=== PATIENT | female | born 1955 | race Caucasian/White ===

== ENCOUNTER 2018-12-05 08:56 | Inpatient (IN) | payer OTHER ==
[2018-12-04 14:45] VITALS: Ht 174 cm; Wt 123.6 kg
[~2018-12-05] VITALS: Ht 174 cm; Wt 123.6 kg
[2018-12-05] VITALS (32 sets, daily range): BP systolic 136–171; BP diastolic 67–86; PULSE 68–87; RESP 9–27
[2018-12-05] MEDS ORDERED: DULO30CA47 PO (10:15)
[2018-12-05] MEDS ORDERED: DULO60CA59 PO (10:15)
[2018-12-05] MEDS ORDERED: DICL75TA2 PO (10:16)
--- NOTE | 2018-12-05 10:16 | PREAC ---
Date/Time of Note Date/Time of Note DATE: 12/05/18 TIME: 10:15 Anesthesia Eval and Record Evaluation Time Pre-Procedure Interview DATE: 12/05/18 TIME: 10:15 Age 63 Sex female NPO: 8 hrs Preoperative diagnosis Left knee osteoarthritis Planned procedure Left total knee replacement Past Medical History Past Medical History: Includes Cardio: HTN GI: Morbid obesity Psych: Depression Surgery & Anesthesia Issues No known issue Meds Anticoagulation: No Beta Lindsey within 24 hr: Yes Reported Medications Tramadol Hcl* (Ultram*) 50 Mg Tablet, 50 MG PO TID PRN for PAIN, TAB 12/05/18 Gabapentin* (Gabapentin*) 300 Mg Capsule, 600 MG PO QHS, #180 CAP 12/05/18 Gabapentin* (Gabapentin*) 300 Mg Capsule, 300 MG PO QNOON, #90 CAP 12/05/18 Gabapentin* (Gabapentin*) 300 Mg Capsule, 300 MG PO QAM, #60 CAP 12/05/18 Baclofen* (Baclofen*) 10 Mg Tablet, 10 MG PO TID, TAB 12/05/18 Propranolol Hcl* (Inderal* LA) 80 Mg Cap.sa.24h, 80 MG PO DAILY, CAP 12/05/18 Diclofenac Sodium* (Diclofenac Sodium*) 75 Mg Tablet.dr, 75 MG PO BID, #60 TAB 12/05/18 Duloxetine Hcl* (Duloxetine Hcl*) 60 Mg Capsule.dr, 90 MG PO QPM, #30 CAP 12/05/18 Discontinued Reported Medications Duloxetine Hcl* (Duloxetine Hcl*) 30 Mg Capsule.dr, 30 MG PO QPM, #30 CAP 12/05/18 Current Medications Tranexamic Acid 100 ml @ 200 mls/hr INTRA-OP ONCE IV ; Start 12/05/18 at 10:30; Stop 12/05/18 at 10:59 Meds reviewed: Yes Allergies Coded Allergies: No Known Allergy (Unverified , 12/05/18) Allergies Reviewed: Yes Labs/Studies Labs Reviewed: Reviewed by anesthesiologist test: N/A Pre-procedure Exam Airway: Adequate mouth opening Mallampati: Mallampati II Teeth: Normal Lung: Normal Heart: Normal ASA Physical Status ASA physical status: 3 Emergency: None Planned Anesthetic General/MAC: ETT, LMA Planned Pain Management Parenteral pain med Pre-operative Attestations Prior to commencing anesthesia and surgery, the patient was re-evaluated, there was verification of: *The patient's identity *The results of appropriate recent lab work and preoperative vital signs *The above evaluation not changing prior to induction *Anesthetic plan, risk benefits, alternative and complications discussed with patient/family; questions answered; patient/family understands, accepts and wishes to proceed. MILLA BAILEY MD Dec 05, 2018 10:16
[2018-12-05] MEDS ORDERED: BACL10TA PO (10:17)
[2018-12-05] MEDS ORDERED: PROP80CA PO (10:17)
[2018-12-05] MEDS ORDERED: GABA300C16 PO ×3 (10:18)
[2018-12-05] MEDS ORDERED: TRAM50TA PO (10:19)
[2018-12-05] MEDS ORDERED: TRANEXAMIC ACID 1GM/100ML(PMX) 100 ML IV ONE (10:30)
[2018-12-05] MEDS ORDERED: BACITRACIN/POLYMYXIN 28.35 GM OINT TOP ONE (10:30)
[2018-12-05] MEDS ORDERED: POLYMYXIN/BACITRACIN 1L IRRIG ONE ×2 (10:30→11:04)
[2018-12-05] MEDS ORDERED: LACTATED RINGER'S 1,000 ML IV SCH (11:00)
[2018-12-05] MEDS ORDERED: CEFAZOLIN 1 GM INJ ONE (11:34)
[2018-12-05] MEDS ORDERED: ONDANSETRON 4 MG INJ ONE (11:35)
[2018-12-05] MEDS ORDERED: METOCLOPRAMIDE 10 MG INJ ONE (11:35)
[2018-12-05] MEDS ORDERED: ONDANSETRON 4 MG INJ IV STA (11:38)
--- NOTE | 2018-12-05 11:47 | HPN ---
Date/Time of Note Date/Time of Note DATE: 12/05/18 TIME: 11:47 Interval H&P Admission Note Pt. seen H&P reviewed: No system changes DIANA SWANSON MD Dec 05, 2018 11:47
[2018-12-05] MEDS ORDERED: TRANEXAMIC ACID 1GM/100ML(PMX) 200 ML ONE (11:48)
[2018-12-05] MEDS ORDERED: PROPOFOL 20 ML ONE (11:56)
[2018-12-05] MEDS ORDERED: GLYCOPYRROLATE 0.4 MG INJ ONE ×3 (11:56→13:49)
[2018-12-05] MEDS ORDERED: LIDOCAINE 2% (SDV) 5 ML INJ ONE (11:56)
[2018-12-05] MEDS ORDERED: SUCCINYLCHOLINE CHLORIDE 100 MG/5 ML SYG IV ONE (11:56)
[2018-12-05] MEDS ORDERED: ROCURONIUM 50 MG INJ ONE (11:56)
[2018-12-05] MEDS ORDERED: MEPERIDINE 100 MG INJ ONE (11:56)
[2018-12-05] MEDS ORDERED: NEOSTIGMINE 3 MG/3 ML SYRINGE ONE ×2 (11:56→13:45)
[2018-12-05] MEDS ORDERED: hydrALAzine 20 MG INJ IV PRN (12:00)
[2018-12-05] MEDS ORDERED: FENTAnyl 50 MCG/ML VIAL IV PRN ×3 (12:00)
[2018-12-05] MEDS ORDERED: MEPERIDINE 25 MG INJ IV PRN (12:00)
[2018-12-05] MEDS ORDERED: DIPHENHYDRAMINE 50 MG INJ IV PRN ×2 (12:00→14:30)
[2018-12-05] MEDS ORDERED: MIDAZOLAM 1 MG/ML 2 ML INJ IV PRN (12:00)
[2018-12-05] MEDS ORDERED: ONDANSETRON 4 MG INJ IV PRN ×2 (12:00→14:30)
[2018-12-05] MEDS ORDERED: EPHEDrine 25 MG/5 ML SYG IV PRN (12:00)
[2018-12-05] MEDS ORDERED: HYDROmorphONE 1 MG/5 ML IV SYRINGE IV PRN ×3 (12:00)
[2018-12-05] MEDS ORDERED: LABETALOL HCL 20MG INJ IV PRN (12:00)
[2018-12-05] MEDS ORDERED: METOCLOPRAMIDE 10 MG INJ IV PRN (12:00)
[2018-12-05] MEDS ORDERED: NALOXONE (0.4 MG/ML) INJ IV PRN ×3 (14:30→15:00)
[2018-12-05] MEDS ORDERED: LABETALOL HCL 20MG INJ ONE (14:30)
--- NOTE | 2018-12-05 14:46 | OPR ---
Date/Time of Note Date/Time of Note DATE: 12/05/18 TIME: 11:47 Operative Report Preoperative Diagnosis left knee arthritis Postoperative Diagnosis same Operation/Procedure Performed left total knee Surgeon see signature line Support Services Rep radha jara Anesthesia Type: general Estimated Blood Loss: 150 - 200 ml's Transfusion none Specimen bone Grafts/Implants size 6 femur, 4 tibia, ps cemented Tubes/Drains drain Complications none Pt Condition Post Procedure: stable Procedure Description left total knee DIANA SWANSON MD Dec 05, 2018 14:46
[2018-12-05] MEDS: HYDROmorphONE 0.2 MG/ML PCA IV SCH ×2 (14:54→20:40)
[2018-12-05] MEDS ORDERED: NACL 0.9% 3 ML SYG IV SCH ×2 (15:00)
[2018-12-05] MEDS ORDERED: BISACODYL 10 MG SUPP PR PRN (15:00)
[2018-12-05] MEDS ORDERED: NA PHOSPHATE/BIPHOS 133 ML ENEMA PR PRN (15:00)
[2018-12-05] MEDS ORDERED: DOCUSATE SODIUM 100 MG CAP PO ONE (15:00)
[2018-12-05] MEDS ORDERED: HYDROmorphONE 1 MG/ML SYG IV PRN (15:00)
[2018-12-05] MEDS ORDERED: SENNA/DOCUSATE NA (8.6MG/50MG) TAB PO PRN (15:00)
[2018-12-05] MEDS ORDERED: MAGNESIUM HYDROXIDE 30ML CUP PO PRN (15:00)
[2018-12-05] MEDS: CEFAZOLIN 2 GM/50 ML (PMX) 50 ML IVPB SCH ×2 (15:50→23:34)
--- NOTE | 2018-12-05 15:50 | PAC ---
Date/Time of Note Date/Time of Note DATE: 12/05/18 TIME: 15:49 Post-Anesthesia Notes Post-Anesthesia Note Last documented vital signs Vital Signs Date Temp Pulse Resp B/P (MAP) Pulse Ox O2 O2 Flow FiO2 Time Delivery Rate 12/05/18 Nasal 3.0 15:26 Cannula 12/05/18 76 12 153/76 92 15:17 (101) 12/05/18 98.7 14:30 Activity: WNL Respiratory function: WNL Cardiovascular function: WNL Mental status: Baseline Pain reasonably controlled: Yes Hydration appropriate: Yes Nausea/Vomiting absent: Yes MILLA BAILEY MD Dec 05, 2018 15:50
[2018-12-05] MEDS: ONDANSETRON 4 MG INJ IV SCH ×2 (19:20→21:00)
--- NOTE | 2018-12-05 22:03 | OPR ---
DATE OF OPERATION: 12/05/2018 SURGEON: Diana Swanson MD EVENT DESIGNER: RILEY Mock ANESTHESIA: General. PREOPERATIVE DIAGNOSIS: Left knee osteoarthritis. POSTOPERATIVE DIAGNOSIS: Left knee osteoarthritis. PROCEDURE PERFORMED: Left total knee replacement arthroplasty using Armendariz and Nephew posterior stabi lized components, size 6 femur, size 4 tibia, 9 mm liner, 23 mm patellar button Components cemented w ith antibiotic-impregnated cement. ESTIMATED BLOOD LOSS: 200 mL. TOURNIQUET TIME: 65 minutes. COMPLICATIONS: None. PROCEDURE: The patient taken to the operating room and general anesthetic given with intubation, 2 g richie of Kefzol given for prophylaxis with 1 gram of tranexamic acid given. Left leg prepped and drap ed in the usual sterile manner, exsanguinated with Esmarch bandage, tourniquet inflated to 300 mmHg. Standard anterior incision made through medial arthrotomy. Severe arthritis noted in the patellofem oral compartment as well as in the medial and lateral compartments. Large osteophytes removed. Mckenna lla prepared for the 23 mm button. Femur cut for a size 6 posterior stabilized. Tibia cut for a siz e 4. A trial reduction was carried out with a 9-mm liner and full extension was noted with stable st ressing in the medial and lateral boyle. The bone surfaces were irrigated with pulsatile lavage. Th e implants were brought in and cement mixed. Excess cement removed after application with full exten sangeetha achieved. The liner was inserted. Patella inserted. Excess cement removed. Tourniquet deflat ed. Hemostasis ascertained using cautery. Range of motion of the knee was from 0 to 120 degrees, st able medial and lateral stressing in flexion and extension. Good patellar tracking noted. Autotrans fusion drain was placed into the knee. Arthrotomy closed with #2 FiberWire sutures and #1 Vicryl sut ures, subcutaneous layer closed with #1 Vicryl suture, skin closed with hiram. Compression bandage applied. Anesthetic reversed. The patient taken to recovery in stable condition. Dictated By: DIANA NORRIS/NTS Conf#: [id number] DID#: [id number] CC: MICHOACANO LIN; DIANA SWANSON MD;*EndCC*
[2018-12-05] MEDS: SOD CHLORIDE 0.9% 1,000 ML IV SCH (22:31)
[2018-12-05] MEDS ORDERED: CEPASTAT LOZENGE MT PRN (23:00)
[2018-12-05] MEDS: BACLOFEN 10 MG TAB PO SCH (23:33)
[2018-12-05] MEDS: KETOROLAC 30 MG INJ IV PRN (23:36)
[2018-12-06] VITALS: BP 134/67; PULSE 103; RESP 20
[2018-12-06] MEDS: ONDANSETRON 4 MG INJ IV SCH ×2 (03:00→09:00)
[2018-12-06] MEDS: SOD CHLORIDE 0.9% 1,000 ML IV SCH (03:18)
[2018-12-06] MEDS: HYDROmorphONE 0.2 MG/ML PCA IV SCH ×2 (03:27→10:23)
[2018-12-06] MEDS: KETOROLAC 30 MG INJ IV PRN (05:27)
[2018-12-06 07:26] VITALS: BP 122/64; PULSE 89; RESP 19
--- NOTE | 2018-12-06 07:41 | CONS ---
Assessment/Plan Assessment/Plan Hospital Course (Demo Recall) This is a 63-year female who was admitted to the [facility] for: #1 left knee osteoarthritis: Patient is postop day 1 status post left total knee replacement. She currently has a Zeke drain in place that is draining serosanguineous. Continue further management as per orthopedic surgery. PT orders as per orthopedic surgery. Pain management as per Ortho. We will need to discuss with orthopedic surgery regarding chemical prophylaxis. #2 osteoarthritis: Patient status post left knee total arthroplasty. Further management as per orthopedic surgery please see #1 #3. Hypertension: Resume home medication next #4. Chronic headaches: Patient is seen by an outpatient neurologist who is experimenting with various medications that she has not tolerated other meds in the past. She is currently on baclofen and gabapentin and Cymbalta. We will continue baclofen and Cymbalta. We will hold off on gabapentin at the current time as she is on high-dose narcotics. Patient herself actually wanted to titrate herself off some of these medications which I recommended for her to do as an outpatient at good guidance of her neurologist. #5 DVT GI prophylaxis: SCDs to the right lower extremity, no GI prophylaxis indicated Thank you for this consult we will follow with you Consultation Date/Type/Reason Admit Date/Time Dec 05, 2018 at 08:56 Date of Consultation: Dec 05, 2018 Reason for Consultation medical management Requesting Provider: DIANA SWANSON MD Date/Time of Note DATE: 12/06/18 TIME: 07:26 Hx of Present Illness This is a 63-year-old female who came in for elective left knee repair secondary to chronic osteoarthritis and pain that she has been dealing with for some years. Patient has tried treatment with steroid injections as well as hyaluronic acid according to her. She had severe rtix-sm-fodn osteoarthritis and is limiting her mobility and causing pain. She is postop day 1 left total knee arthroplasty. She is doing relatively well. She does report pain in her l eft leg but it is relieved with pain medications. Allergies: NKDA Medications: Diclofenac sodium 75 mg twice daily Gabapentin 300 mg 3 times daily Tramadol 50 mg 3 times daily as needed Baclofen 10 mg p.o. 3 times daily Duloxetine 90 mg p.o. every afternoon Propranolol 80 mg p.o. daily Const: As per HPI Eyes : No pain discharge or redness or change in visual acuity ENT: No pain, sore throat, congestion, congestion, dysphagia or discharge Respiratory: No shortness of breath, cough, sputum, wheezing, or pleuritic pain Cardiovascular: No chest pain, palpitation, PND, or edema GI : no change in appetite, abdominal pain, nausea, vomiting, diarrhea, constipation, or change in the color his stool Genitourinary: No dysuria, hematuria, flank pain , discharge or CVA tenderness Musculoskeletal: As per HPI Skin: No rash, bruising or hives Neuro: No headache, dizziness, syncope, seizure, focal weakness Endocrine: No polyuria, polydipsia, temperature intolerance Psych: No hallucination, depression, anxiety or suicidal ideation Past Medical History Osteoarthritis, hypertension, chronic headaches Home Meds Reported Medications Tramadol Hcl* (Ultram*) 50 Mg Tablet, 50 MG PO TID PRN for PAIN, TAB 12/05/18 Gabapentin* (Gabapentin*) 300 Mg Capsule, 600 MG PO QHS, #180 CAP 12/05/18 Gabapentin* (Gabapentin*) 300 Mg Capsule, 300 MG PO QNOON, #90 CAP 12/05/18 Gabapentin* (Gabapentin*) 300 Mg Capsule, 300 MG PO QAM, #60 CAP 12/05/18 Baclofen* (Baclofen*) 10 Mg Tablet, 10 MG PO TID, TAB 12/05/18 Propranolol Hcl* (Inderal* LA) 80 Mg Cap.sa.24h, 80 MG PO DAILY, CAP 12/05/18 Diclofenac Sodium* (Diclofenac Sodium*) 75 Mg Tablet.dr, 75 MG PO BID, #60 TAB 12/05/18 Duloxetine Hcl* (Duloxetine Hcl*) 60 Mg Capsule.dr, 90 MG PO QPM, #30 CAP 12/05/18 Discontinued Reported Medications Duloxetine Hcl* (Duloxetine Hcl*) 30 Mg Capsule.dr, 30 MG PO QPM, #30 CAP 12/05/18 Medications Current Medications Lactated Ringer's 1,000 ml @ 0 mls/hr Q0M IV ; Start 12/05/18 at 11:00 Naloxone HCl (Narcan) 0.2 mg PRN PRN IV RR < 8; Start 12/05/18 at 14:30 Hydromorphone HCl (Dilaudid PLATEMAKER) Q4PCA IV Last administered on 12/06/18at 03:27; Admin Dose 6 MG; Start 12/05/18 at 14:30 Ketorolac Tromethamine (Toradol) 30 mg Q6H PRN IV .PAIN Last administered on 12/06/18at 05:27; Admin Dose 30 MG; Start 12/05/18 at 14:30; Stop 12/08/18 at 14:29 Ondansetron HCl (Zofran Inj) 4 mg Q6H PRN IV NAUSEA AND/OR VOMITING; Start 12/05/18 at 14:30 Diphenhydramine HCl (Benadryl) 25 mg Q6H PRN IV .ITCHING; Start 12/05/18 at 14:30 Miscellaneous Information 1. Discontinue PLATEMAKER... PLATEMAKER IV ; Start 12/05/18 at 14:30 Sodium Chloride 1,000 ml @ 80 mls/hr [id number] IV Last administered on 12/05/18at 22:31; Admin Dose 80 MLS/HR; Start 12/05/18 at 14:48 Oxycodone HCl (Roxicodone) 15 mg Q4H PRN PO .PAIN; Start 12/05/18 at 15:00 Hydromorphone HCl (Dilaudid) 1 mg Q3H PRN IV .BREAKTHROUGH PAIN; Start 12/05/18 at 15:00 Ondansetron HCl (Zofran Inj) 4 mg Q6H IV ; Start 12/05/18 at 15:00; Stop 12/06/18 at 09:01 Cefazolin Sodium/ Dextrose 50 ml @ 100 mls/hr Q8H IVPB Last administered on 12/05/18at 23:34; Admin Dose 100 MLS/HR; Start 12/05/18 at 16:00; Stop 12/06/18 at 08:29 IV Flush (NS 3 ml) 3 ml PER PROTOCOL IV ; Start 12/05/18 at 15:00 Pantoprazole (Protonix Tab) 40 mg DAILY@06 PO ; Start 12/07/18 at 06:00 Docusate Sodium (Colace) 200 mg BID PO ; Start 12/06/18 at 09:00; Stop 12/09/18 at 08:59 Simethicone (Mylicon) 80 mg TID PRN PO .GAS; Start 12/05/18 at 15:00 Senna/Docusate Sodium (Senokot-S) 2 tab BID PRN PO .CONSTIPATION; Start 12/05/18 at 15:00 Magnesium Hydroxide (Milk Of Mag) 30 ml HS PRN PO .CONSTIPATION; Start 12/05/18 at 15:00 Bisacodyl (Dulcolax Supp) 10 mg DAILY PRN AR .CONSTIPATION; Start 12/05/18 at 15:00 Sodium Biphosphate/ Sodium Phosphate (Fleet Enema) 133 ml DAILY PRN AR .CONSTIPATION; Start 12/05/18 at 15:00 Naloxone HCl (Narcan) 0.2 mg Q2M PRN IV .RESP RATE; Start 12/05/18 at 15:00 Duloxetine HCl (Cymbalta) 90 mg QPM PO ; Start 12/06/18 at 21:00 Phenol (Cepastat Lozenge) 1 lozenge Q1H PRN MT SORE THROAT Last administered on 12/05/18at 23:59; Admin Dose 1 LOZENGE; Start 12/05/18 at 23:00 Propranolol HCl (Inderal La) 80 mg DAILY PO ; Start 12/06/18 at 09:00 Baclofen (Lioresal) 10 mg TID PO Last administered on 12/05/18at 23:33; Admin Dose 10 MG; Start 12/05/18 at 23:00 Allergies: Coded Allergies: No Known Allergy (Unverified , 12/05/18) Past Surgical History Postop left total knee arthroplasty Partial hysterectomy Gastric bypass Family History Significant Family History: no pertinent family hx Social History Alcohol Use: none Smoking Status: Former smoker Drug Use: none Exam/Review of Systems Exam Vitals Vital Signs Date Temp Pulse Resp B/P (MAP) Pulse Ox O2 O2 Flow FiO2 Time Delivery Rate 12/06/18 17 01:00 12/06/18 97.5 103 134/67 96 00:00 (89) 12/05/18 Nasal 2.0 20:05 Cannula Intake and Output 12/05/18 12/05/18 12/06/18 1515:00 23:00 07:00 IntakeIntake Total 1100 ml 560 ml 1050 ml OutputOutput Total 20 ml 400 ml 1560 ml BalanceBalance 1080 ml 160 ml -510 ml Exam General: Patient is a pleasant female currently in bed in no acute distress HEENT: Atraumatic, normocephalic. The pupils are equal, round and reactive. Extraocular motor are intact Neck: Supple with full range of motion. No rigidity or meningismus Chest: Nontender Lungs: Clear to auscultation bilaterally no crackles rales or wheezing Heart: Normal S1-S2, Regular rhythm and rate. No murmur, S3, or S4 Abdomen: Morbidly obese, soft , nontender, nondistended , bowel sounds are present. No guarding no rebound tenderness , No masses or organomegaly. No costovertebral temporal angle mass Extremities: Left knee: And postoperative dressing and knee immobilizer, patient does have a Boomer drain. Neurologic: Normal mental status, speech normal, cranial nerves II through XII are intact, motor and sensory are intact, no focal weakness Results Result Diagram: 12/06/18 0436 12/06/18 0435 Results 24hrs Laboratory Tests Test 12/05/18 23:11 12/05/18 23:59 12/06/18 04:35 12/06/18 04:36 Sodium Level 141 139 Potassium Level 4.5 4.3 Chloride Level 105 104 Carbon Dioxide 26 26 Level Anion Gap 10 9 Blood Urea 13 13 Nitrogen Creatinine 0.63 0.72 Est Glomerular > 60 > 60 Filtrat Rate mL/min Glucose Level 131 117 Calcium Level 8.7 8.7 Total Bilirubin 0.5 0.4 Direct Bilirubin 0.00 0.00 Indirect Bilirubin 0.5 0.4 Aspartate Amino 39 23 Transf (AST/SGOT) Alanine 27 23 Aminotransferase ( ALT/SGPT) Alkaline 44 46 Phosphatase Total Protein 7.1 6.9 Albumin 4.0 3.8 Globulin 3.10 3.10 Albumin/Globulin 1.29 1.22 Ratio White Blood Count 9.0 8.4 Red Blood Count 4.06 L 4.03 L Hemoglobin 10.5 L 10.4 L Hematocrit 32.6 L 32.4 L Mean Corpuscular 80.3 L 80.4 L Volume Mean Corpuscular 25.9 L 25.8 L Hemoglobin Mean Corpuscular 32.2 32.1 Hemoglobin Concent Red Cell 16.4 H 16.7 H Distribution Width Platelet Count 424 H 428 H Mean Platelet 9.4 9.7 Volume Immature 0.300 0.200 Granulocytes % Neutrophils % 70.2 61.5 Lymphocytes % 17.9 22.3 Monocytes % 10.8 14.7 H Eosinophils % 0.1 0.7 Basophils % 0.7 0.6 Nucleated Red 0.0 0.0 Blood Cells % Immature 0.030 0.020 Granulocytes # Neutrophils # 6.3 5.2 Lymphocytes # 1.6 1.9 Monocytes # 1.0 H 1.2 H Eosinophils # 0.0 0.1 Basophils # 0.1 0.1 Nucleated Red 0.0 0.0 Blood Cells # Hemoglobin A1c 5.5 Magnesium Level 2.0 Triglycerides 120 Level Cholesterol Level 159 LDL Cholesterol, 86 Calculated HDL Cholesterol 49 Cholesterol/HDL 3.2 Ratio Thyroid 0.895 Stimulating Hormone (TSH) Test 12/06/18 07:06 Lab Scanned Report REFERENCE LAB Medications Medication Current Medications Lactated Ringer's 1,000 ml @ 0 mls/hr Q0M IV ; Start 12/05/18 at 11:00 Naloxone HCl (Narcan) 0.2 mg PRN PRN IV RR < 8; Start 12/05/18 at 14:30 Hydromorphone HCl (Dilaudid PLATEMAKER) Q4PCA IV Last administered on 12/06/18at 03:27; Admin Dose 6 MG; Start 12/05/18 at 14:30 Ketorolac Tromethamine (Toradol) 30 mg Q6H PRN IV .PAIN Last administered on 12/06/18at 05:27; Admin Dose 30 MG; Start 12/05/18 at 14:30; Stop 12/08/18 at 14:29 Ondansetron HCl (Zofran Inj) 4 mg Q6H PRN IV NAUSEA AND/OR VOMITING; Start 12/05/18 at 14:30 Diphenhydramine HCl (Benadryl) 25 mg Q6H PRN IV .ITCHING; Start 12/05/18 at 14:30 Miscellaneous Information 1. Discontinue PLATEMAKER... PLATEMAKER IV ; Start 12/05/18 at 14:30 Sodium Chloride 1,000 ml @ 80 mls/hr [id number] IV Last administered on 12/05/18at 22:31; Admin Dose 80 MLS/HR; Start 12/05/18 at 14:48 Oxycodone HCl (Roxicodone) 15 mg Q4H PRN PO .PAIN; Start 12/05/18 at 15:00 Hydromorphone HCl (Dilaudid) 1 mg Q3H PRN IV .BREAKTHROUGH PAIN; Start 12/05/18 at 15:00 Ondansetron HCl (Zofran Inj) 4 mg Q6H IV ; Start 12/05/18 at 15:00; Stop 12/06/18 at 09:01 Cefazolin Sodium/ Dextrose 50 ml @ 100 mls/hr Q8H IVPB Last administered on 12/05/18at 23:34; Admin Dose 100 MLS/HR; Start 12/05/18 at 16:00; Stop 12/06/18 at 08:29 IV Flush (NS 3 ml) 3 ml PER PROTOCOL IV ; Start 12/05/18 at 15:00 Pantoprazole (Protonix Tab) 40 mg DAILY@06 PO ; Start 12/07/18 at 06:00 Docusate Sodium (Colace) 200 mg BID PO ; Start 12/06/18 at 09:00; Stop 12/09/18 at 08:59 Simethicone (Mylicon) 80 mg TID PRN PO .GAS; Start 12/05/18 at 15:00 Senna/Docusate Sodium (Senokot-S) 2 tab BID PRN PO .CONSTIPATION; Start 12/05/18 at 15:00 Magnesium Hydroxide (Milk Of Mag) 30 ml HS PRN PO .CONSTIPATION; Start 12/05/18 at 15:00 Bisacodyl (Dulcolax Supp) 10 mg DAILY PRN AR .CONSTIPATION; Start 12/05/18 at 15:00 Sodium Biphosphate/ Sodium Phosphate (Fleet Enema) 133 ml DAILY PRN AR .CONSTIPATION; Start 12/05/18 at 15:00 Naloxone HCl (Narcan) 0.2 mg Q2M PRN IV .RESP RATE; Start 12/05/18 at 15:00 Duloxetine HCl (Cymbalta) 90 mg QPM PO ; Start 12/06/18 at 21:00 Phenol (Cepastat Lozenge) 1 lozenge Q1H PRN MT SORE THROAT Last administered on 12/05/18at 23:59; Admin Dose 1 LOZENGE; Start 12/05/18 at 23:00 Propranolol HCl (Inderal La) 80 mg DAILY PO ; Start 12/06/18 at 09:00 Baclofen (Lioresal) 10 mg TID PO Last administered on 12/05/18at 23:33; Admin Dose 10 MG; Start 12/05/18 at 23:00 BETHANY CHRISTIE Dec 06, 2018 07:41
[2018-12-06] MEDS ORDERED: BACLOFEN 10 MG TAB PO SCH (09:00)
[2018-12-06] MEDS ORDERED: PROPRANOLOL (LA) 80 MG CAP PO SCH (09:00)
[2018-12-06] MEDS: CEFAZOLIN 2 GM/50 ML (PMX) 50 ML IVPB SCH (09:06)
[2018-12-06] MEDS: BACLOFEN 10 MG TAB PO SCH (09:07)
[2018-12-06] MEDS: DOCUSATE SODIUM 100 MG CAP PO SCH ×2 (09:07→23:13)
[2018-12-06] MEDS: PROPRANOLOL (LA) 80 MG CAP PO SCH (09:37)
[2018-12-06 14:57] VITALS: BP 141/71; PULSE 79; RESP 18
[2018-12-06 20:01] VITALS: BP 164/80; PULSE 77; RESP 20
[2018-12-06] MEDS: DULOXETINE 30 MG CAP DR PO SCH (23:12)
[2018-12-07 02:22] VITALS: BP 158/72; PULSE 70; RESP 17
[2018-12-07] MEDS: PANTOPRAZOLE (EC) 40 MG TAB PO SCH (06:57)
[2018-12-07 08:53] VITALS: BP 139/75; PULSE 86; RESP 18
[2018-12-07] MEDS: DOCUSATE SODIUM 100 MG CAP PO SCH ×2 (08:56→21:15)
[2018-12-07] MEDS: PROPRANOLOL (LA) 80 MG CAP PO SCH (08:57)
[2018-12-07] MEDS: oxyCODONE 5 MG TAB PO PRN ×2 (09:23→14:17)
--- NOTE | 2018-12-07 15:06 | PN ---
Date/Time of Note Date/Time of Note DATE: 12/07/18 TIME: 15:05 Assessment/Plan VTE Prophylaxis Risk score (from Nsg)>0 risk: 11 SCD applied (from Nsg): Yes Pharmacological prophylaxis: heparin Lines/Catheters IV Catheter Type (from Nrsg): Peripheral IV Urinary Cath still in place: No Assessment/Plan Hospital Course 63 yo female with OA, s/p R TKA - PT/OT - Pain control - DVT ppx - Dispo to [facility] Depression: - Cymbalta Hypertension; - Propranolol Discharge plna to [facility] Result Diagram: 12/07/1844912/07/18449 Results 24hrs Laboratory Tests Test 12/07/18 04:50 White Blood Count 9.3 Red Blood Count 3.98 L Hemoglobin 10.1 L Hematocrit 32.0 L Mean Corpuscular Volume 80.4 L Mean Corpuscular Hemoglobin 25.4 L Mean Corpuscular Hemoglobin Concent 31.6 L Red Cell Distribution Width 16.4 H Platelet Count 354 Mean Platelet Volume 9.7 Immature Granulocytes % 0.400 Neutrophils % 69.8 Lymphocytes % 14.6 L Monocytes % 14.6 H Eosinophils % 0.2 Basophils % 0.4 Nucleated Red Blood Cells % 0.0 Immature Granulocytes # 0.040 H Neutrophils # 6.5 Lymphocytes # 1.4 Monocytes # 1.4 H Eosinophils # 0.0 Basophils # 0.0 Nucleated Red Blood Cells # 0.0 Sodium Level 139 Potassium Level 4.1 Chloride Level 103 Carbon Dioxide Level 24 Anion Gap 12 Blood Urea Nitrogen 7 Creatinine 0.53 Est Glomerular Filtrat Rate mL/min > 60 Glucose Level 99 Calcium Level 8.7 Total Bilirubin 0.4 Direct Bilirubin 0.00 Indirect Bilirubin 0.4 Aspartate Amino Transf (AST/SGOT) 23 Alanine Aminotransferase (ALT/SGPT) 10 L Alkaline Phosphatase 41 L Total Protein 6.6 Albumin 3.6 Globulin 3.00 Albumin/Globulin Ratio 1.20 Subjective 24 Hr Interval Summary Free Text/Dictation Working with PT pain controlled Exam/Review of Systems Exam Vitals Vital Signs Date Temp Pulse Resp B/P (MAP) Pulse Ox O2 O2 Flow FiO2 Time Delivery Rate 12/07/18 18 08:58 12/07/18 98.3 86 139/75 99 Room Air 08:53 (96) 12/06/18 2.0 07:26 Intake and Output 612/06/18 12/07/18 1515:00 23:00 07:00 IntakeIntake Total 800 ml 1900 ml 660 ml OutputOutput Total 1100 ml 640 ml 2220 ml BalanceBalance -300 ml 1260 ml -1560 ml Results Results 24hrs Laboratory Tests Test 12/07/18 04:50 White Blood Count 9.3 Red Blood Count 3.98 L Hemoglobin 10.1 L Hematocrit 32.0 L Mean Corpuscular Volume 80.4 L Mean Corpuscular Hemoglobin 25.4 L Mean Corpuscular Hemoglobin Concent 31.6 L Red Cell Distribution Width 16.4 H Platelet Count 354 Mean Platelet Volume 9.7 Immature Granulocytes % 0.400 Neutrophils % 69.8 Lymphocytes % 14.6 L Monocytes % 14.6 H Eosinophils % 0.2 Basophils % 0.4 Nucleated Red Blood Cells % 0.0 Immature Granulocytes # 0.040 H Neutrophils # 6.5 Lymphocytes # 1.4 Monocytes # 1.4 H Eosinophils # 0.0 Basophils # 0.0 Nucleated Red Blood Cells # 0.0 Sodium Level 139 Potassium Level 4.1 Chloride Level 103 Carbon Dioxide Level 24 Anion Gap 12 Blood Urea Nitrogen 7 Creatinine 0.53 Est Glomerular Filtrat Rate mL/min > 60 Glucose Level 99 Calcium Level 8.7 Total Bilirubin 0.4 Direct Bilirubin 0.00 Indirect Bilirubin 0.4 Aspartate Amino Transf (AST/SGOT) 23 Alanine Aminotransferase (ALT/SGPT) 10 L Alkaline Phosphatase 41 L Total Protein 6.6 Albumin 3.6 Globulin 3.00 Albumin/Globulin Ratio 1.20 Medications Medication Current Medications Lactated Ringer's 1,000 ml @ 0 mls/hr Q0M IV ; Start 12/05/18 at 11:00 Naloxone HCl (Narcan) 0.2 mg PRN PRN IV RR < 8; Start 12/05/18 at 14:30 Ketorolac Tromethamine (Toradol) 30 mg Q6H PRN IV .PAIN Last administered on 12/06/18at 05:27; Admin Dose 30 MG; Start 12/05/18 at 14:30; Stop 12/08/18 at 14:29 Ondansetron HCl (Zofran Inj) 4 mg Q6H PRN IV NAUSEA AND/OR VOMITING; Start 12/05/18 at 14:30 Diphenhydramine HCl (Benadryl) 25 mg Q6H PRN IV .ITCHING; Start 12/05/18 at 14:30 Miscellaneous Information 1. Discontinue PURCHASING BUYER... PURCHASING BUYER IV ; Start 12/05/18 at 14:30 Oxycodone HCl (Roxicodone) 15 mg Q4H PRN PO .PAIN Last administered on 12/07/18at 14:17; Admin Dose 15 MG; Start 12/05/18 at 15:00 Hydromorphone HCl (Dilaudid) 1 mg Q3H PRN IV .BREAKTHROUGH PAIN; Start 12/05/18 at 15:00 IV Flush (NS 3 ml) 3 ml PER PROTOCOL IV ; Start 12/05/18 at 15:00 Pantoprazole (Protonix Tab) 40 mg DAILY@06 PO Last administered on 12/07/18at 06:57; Admin Dose 40 MG; Start 12/07/18 at 06:00 Docusate Sodium (Colace) 200 mg BID PO Last administered on 12/07/18at 08:56; Admin Dose 200 MG; Start 12/06/18 at 09:00; Stop 12/09/18 at 08:59 Simethicone (Mylicon) 80 mg TID PRN PO .GAS; Start 12/05/18 at 15:00 Senna/Docusate Sodium (Senokot-S) 2 tab BID PRN PO .CONSTIPATION; Start 12/05/18 at 15:00 Magnesium Hydroxide (Milk Of Mag) 30 ml HS PRN PO .CONSTIPATION; Start 12/05/18 at 15:00 Bisacodyl (Dulcolax Supp) 10 mg DAILY PRN SC .CONSTIPATION; Start 12/05/18 at 15:00 Sodium Biphosphate/ Sodium Phosphate (Fleet Enema) 133 ml DAILY PRN SC .CO NSTIPATION; Start 12/05/18 at 15:00 Naloxone HCl (Narcan) 0.2 mg Q2M PRN IV .RESP RATE; Start 12/05/18 at 15:00 Duloxetine HCl (Cymbalta) 90 mg QPM PO Last administered on 12/06/18at 23:12; Admin Dose 90 MG; Start 12/06/18 at 21:00 Phenol (Cepastat Lozenge) 1 lozenge Q1H PRN MT SORE THROAT Last administered on 12/05/18at 23:59; Admin Dose 1 LOZENGE; Start 12/05/18 at 23:00 Propranolol HCl (Inderal La) 80 mg DAILY PO Last administered on 12/07/18at 08:57; Admin Dose 80 MG; Start 12/06/18 at 09:00 GEOFFREY SCHULZ MD Dec 07, 2018 15:06
[2018-12-07 16:36] VITALS: BP 144/66; PULSE 75; RESP 19
[2018-12-07] MEDS: KETOROLAC 30 MG INJ IV PRN (16:51)
[2018-12-07 19:34] VITALS: BP 125/66; PULSE 74; RESP 18
[2018-12-07] MEDS: DULOXETINE 30 MG CAP DR PO SCH (21:15)
[2018-12-08] MEDS: oxyCODONE 5 MG TAB PO PRN (01:39)
[2018-12-08 02:08] VITALS: BP 143/71; PULSE 81; RESP 16
[2018-12-08] MEDS: PANTOPRAZOLE (EC) 40 MG TAB PO SCH (05:23)
[2018-12-08 07:40] VITALS: BP 138/75; PULSE 79; RESP 18
[2018-12-08] MEDS: DOCUSATE SODIUM 100 MG CAP PO SCH (09:01)
[2018-12-08] MEDS: PROPRANOLOL (LA) 80 MG CAP PO SCH (09:01)
[2018-12-08] MEDS: KETOROLAC 30 MG INJ IV PRN (10:01)
[2018-12-08] MEDS ORDERED: traMADol 50 MG TAB PO PRN (10:30)
[2018-12-08 14:28] VITALS: BP 14/78; PULSE 80; RESP 18
[2018-12-08] MEDS ORDERED: DOCU-144 PO (16:09)
[2018-12-08] MEDS ORDERED: SIME80TA60 PO (16:09)
[2018-12-08] MEDS ORDERED: UDMOM PO (16:09)
[2018-12-08] MEDS ORDERED: OXYC-481 PO (16:09)
[2018-12-08] MEDS ORDERED: RIVA10TA PO (16:30)
--- NOTE | 2018-12-08 16:31 | DS ---
Date/Time of Note Date/Time of Note DATE: 12/08/18 TIME: 16:27 Discharge Summary Admission/Discharge Info Admit Date/Time Dec 05, 2018 at 08:56 Discharge Date/Time December 08, 2018 Discharge Diagnosis 63 yo female with OA, s/p R TKA - PT/OT - Pain control - DVT ppx - Dispo to SNF Depression: - Cymbalta Hypertension; - Propranolol Patient Condition: Good Hospital Course Patient is a 63 yo female with depression, hypertension and OA, s/p L TKA. Patient was seen by PT and recommendation was for residential placement. Patient was stable for DC, on the day of discharge patient vitals, labs and physical exam are stable. Home Meds Active Scripts Simethicone* (Mylicon*) 80 Mg Tab, 80 MG PO TID PRN for .GAS, #20 TAB Prov:JUAN CARLOS MAC 12/08/18 Magnesium Hydroxide* (Kurtz' MOM*) 30 Ml Susp, 30 ML PO HS PRN for . CONSTIPATION, #20 Prov:JUAN CARLOS MAC 12/08/18 Oxycodone Hcl* (IR) (Roxicodone*) 5 Mg Tab, 15 MG PO Q4H PRN for .PAIN, #30 TAB Prov:JUAN CARLOS MAC 12/08/18 Docusate Sodium* (Colace*) 100 Mg Capsule, 200 MG PO BID, #60 CAP Prov:JUAN CARLOS MAC 12/08/18 Reported Medications Tramadol Hcl* (Ultram*) 50 Mg Tablet, 50 MG PO TID PRN for PAIN, TAB 12/05/18 Gabapentin* (Gabapentin*) 300 Mg Capsule, 600 MG PO QHS, #180 CAP 12/05/18 Gabapentin* (Gabapentin*) 300 Mg Capsule, 300 MG PO QNOON, #90 CAP 12/05/18 Gabapentin* (Gabapentin*) 300 Mg Capsule, 300 MG PO QAM, #60 CAP 12/05/18 Baclofen* (Baclofen*) 10 Mg Tablet, 10 MG PO TID, TAB 12/05/18 Propranolol Hcl* (Inderal* LA) 80 Mg Cap.sa.24h, 80 MG PO DAILY, CAP 12/05/18 Diclofenac Sodium* (Diclofenac Sodium*) 75 Mg Tablet.dr, 75 MG PO BID, #60 TAB 12/05/18 Duloxetine Hcl* (Duloxetine Hcl*) 60 Mg Capsule., 90 MG PO QPM, #30 CAP 12/05/18 Discontinued Reported Medications Duloxetine Hcl* (Duloxetine Hcl*) 30 Mg Capsule., 30 MG PO QPM, #30 CAP 12/05/18 Follow-up Plan Follow-up with physicians at half-way facility Primary Care Provider Not On Staff Doctor Time spent on discharge: > 30 minutes JUAN CARLOS MAC Dec 08, 2018 16:31
== END 2018-12-08 16:45 | DRG 470 ==
LOC: REC 08:56 → MS1 16:13
PROVIDERS: ADMIT Specialist; ATTEND Internal Medicine
PROC: 0SRD0J9 Replacement of Left Knee Joint with Synthetic Substitute, Cemented, Open Approach (ICD-10-PCS; principal; 2018-12-05 11:00)
DX: M17.12 Unilateral primary osteoarthritis, left knee (principal); Z68.41 Body mass index [BMI] 40.0-44.9, adult; I10 Essential (primary) hypertension; E66.01 Morbid (severe) obesity due to excess calories; F32.9 Major depressive disorder, single episode, unspecified; R51 Headache; Z87.891 Personal history of nicotine dependence
CPT/HCPCS: 80053; 80061; 82306; 83036; 83735; 84443; 85025; 86850; 86900; 86901; 88304; 88311; 97116; 97162; 97530; C1713; C1776; J0690; J1170; J1885; J2175; J2405; J2710; J2765; J3010; J7030